=== PATIENT | female | born 1965 | race Caucasian/White ===

== ENCOUNTER → 2018-09-27 | Outpatient (CLI) | payer OTHER ==
[~2018-09-27] MED LIST: FLU60VIA41 IM; FRO2.5PT PO; NAPR-1043 PO; OMEG-11 PO; ONDA4TAB97 PO; SERT-181 PO; SERT25TA90 PO
--- NOTE | 2018-09-27 17:17 | RADIOLOGY IMAGING REPORT ---
FACILITY: [facility] [place] PATIENT NAME: KT NEWMAN : [id number] MR: [id number] V: [id number] EXAM DATE: ORDERING PHYSICIAN: BREANN CARRILLO TECHNOLOGIST: Humera Singh PROCEDURE:BILATERAL DIGITAL SCREENING MAMMOGRAM WITH CAD ASSISTED INTERPRETATION & 3D TOMOSYNTHESIS COMPARISON:Prior mammograms 05/20/12. INDICATIONS:screening FINDINGS: There are scattered areas of fibroglandular density throughout the breasts. In the upper outer quadrant of the Left breast in the middle 1/3 there is now a spiculated mass for which Spot compression view and Left breast Ultrasound is recommended. The remainder of the parenchymal pattern has remained stable. DIAGNOSTIC CATEGORY 0--INCOMPLETE: NEED ADDITIONAL IMAGING EVALUATION. RECOMMENDATIONS: ADDITIONAL MAMMOGRAPHIC VIEWS REQUIRED: LEFT BREAST. ULTRASOUND: LEFT BREAST. IMPRESSION: BIRADS 0: Incomplete. Additional views of the Left breast and Left breast Ultrasound recommended as described. Dictated by: Osiris Bear M.D. on 09/27/2018 at 14:40 Transcribed by: TRELL on 09/27/2018 at 14:59 Approved by: Osiris Bear M.D. on 09/27/2018 at 17:16 [facility]
== END ==
LOC: MAMO 01:07
PROVIDERS: ATTEND Family Medicine
DX: R92.2 Inconclusive mammogram (principal); Z80.3 Family history of malignant neoplasm of breast
CPT/HCPCS: 77063; 77067

== ENCOUNTER → 2018-10-11 | Outpatient (CLI) | payer OTHER ==
--- NOTE | 2018-10-12 14:20 | RADIOLOGY IMAGING REPORT ---
FACILITY: [facility] [place] PATIENT NAME: KT NEWMAN : [id number] MR: [id number] V: [id number] EXAM DATE: [id number] ORDERING PHYSICIAN: BREANN CARRILLO TECHNOLOGIST: Darcie Banks PROCEDURE:LEFT DIGITAL DIAGNOSTIC MAMMOGRAM WITH CAD ASSISTED INTERPRETATION & 3D TOMOSYNTHESIS COMPARISON:Prior mammograms 09/27/18, 05/20/12. INDICATIONS:further evaluation FINDINGS: The patient returns for Spot compression views in Left CC & MLO projections with 3D breast Tomosynthesis. The additional images do confirm a spiculated mass in the upper outer quadrant of the Left breast in the middle 1/3 which was not present on the prior study. Today's Left breast Ultrasound did demonstrate a spiculated solid mass in the 1 o'clock position of the Left breast 6cm from the nipple. This finding is extremely concerning for neoplasm. An Ultrasound guided core biopsy is recommended. DIAGNOSTIC CATEGORY 5--HIGHLY SUGGESTIVE OF MALIGNANCY. RECOMMENDATIONS: ULTRASOUND-GUIDED CORE BIOPSY: LEFT BREAST. IMPRESSION: BIRADS 5: Highly suggestive of malignancy. Ultrasound guided core biopsy of the spiculated solid mass 1 o'clock position of the Left breast 6cm from the nipple recommended. These findings were discussed with the patient at the time of the examination. Dictated by: Osiris Bear M.D. on 10/11/2018 at 16:38 Transcribed by: TRELL on 10/12/2018 at 10:16 Approved by: Osiris Bear M.D. on 10/12/2018 at 14:19 [facility]
--- NOTE | 2018-10-12 15:03 | RADIOLOGY IMAGING REPORT ---
FACILITY: [facility] [place] PATIENT NAME: KT NEWMAN : [id number] MR: [id number] V: [id number] EXAM DATE: [id number] ORDERING PHYSICIAN: BREANN CARRILLO TECHNOLOGIST: Sonny Villalta RDMS, [facility] PROCEDURE:US LEFT BREAST COMPLETE COMPARISON:Today's diagnostic Left mammogram. INDICATIONS:Abnormal mammogram FINDINGS: In the 1 o'clock position of the Left breast 6cm from the nipple there is a 1 x 0.8 x 0.9cm irregular spiculated mass with acoustic shadowing. There is peripheral hyper vascularity. Utilizing sheer wave elastography this measurement of 276kPa is extremely concerning for a neoplasm. Incidentally noted is a fatty replaced lymph node in the Left axilla with normal morphology. DIAGNOSTIC CATEGORY 5--HIGHLY SUGGESTIVE OF MALIGNANCY. RECOMMENDATIONS: ULTRASOUND-GUIDED CORE BIOPSY: LEFT BREAST. IMPRESSION: BIRADS 5: Highly suggestive of malignancy. Ultrasound guided core biopsy of the spiculated mass in the 1 o'clock position of the Left breast 6cm from the nipple recommended. Dictated by: Osiris Bear M.D. on 10/12/2018 at 10:57 Transcribed by: TRELL on 10/12/2018 at 14:57 Approved by: Osiris Bear M.D. on 10/12/2018 at 15:03 [facility]
== END ==
LOC: MAMO 01:28
PROVIDERS: ATTEND Family Medicine
DX: N63.21 Unspecified lump in the left breast, upper outer quadrant (principal)
CPT/HCPCS: 77061; 77065

== ENCOUNTER → 2018-10-19 | Outpatient (CLI) | payer OTHER ==
[~2018-10-19] MED LIST changes: +LIDOCAINE MPF 1% 5 ML VIAL ONE
[2018-10-19 11:26] LABS: INR 0.97
--- NOTE | 2018-10-21 14:13 | RADIOLOGY IMAGING REPORT ---
[place] [facility] [place] KT NEWMAN : [id number] MR: [id number] V: [id number] EXAM DATE: ORDERING PHYSICIAN: TITI EMANUEL TECHNOLOGIST: Sonny Villalta RDMS, [facility] PROCEDURE: BIOPSY LEFT BREAST COMPARISON: Left breast Ultrasound of 10/11/18 & Left mammogram of 10/11/18 & bilateral mammogram of 09/27/18 INDICATIONS: Spiculated mass in the 1 o'clock position of the Left breast FINDINGS: Informed consent was obtained. The patient's Left breast was prepped & draped in the usual sterile fashion. Local anesthesia was accomplished with 1% Lidocaine. Under direct & continuous sonographic guidance four 14 Gauge core biopsies were obtained through the spiculated mass in the 1 o'clock position of the Left breast. The samples were placed in formalin, shown to the patient & sent to the Laboratory for evaluation. A biopsy clip was placed in the biopsy site. The procedure was accomplished without apparent complication. The post biopsy mammogram of the Left breast was performed for clip placement demonstrating the biopsy clip to be located within the spiculated mass in the upper outer quadrant of the Left breast. IMPRESSION: Successful Ultrasound guided Left breast biopsy as detailed above. Dictated by: Osiris Bear M.D. on 10/19/2018 at 15:52 Transcribed by: YUE on 10/21/2018 at 13:23 Approved by: Osiris Bear M.D. on 10/21/2018 at 14:11 [facility]
== END ==
LOC: US 00:58
PROVIDERS: ATTEND Surgery
DX: N63.20 Unspecified lump in the left breast, unspecified quadrant (principal)
CPT/HCPCS: 19083; 36415; 85610; 88305; 88344; J2001

== ENCOUNTER 2018-11-03 01:04 | Day surgery (SDC) | payer OTHER ==
[~2018-11-03] VITALS: Ht 160 cm; Wt 69.9 kg
[~2018-11-03 01:04] MED LIST changes: -LIDOCAINE MPF 1% 5 ML VIAL ONE
[2018-11-03 09:33] VITALS: BP 120/82
[2018-11-03] MEDS ORDERED: LIDOCAINE/PRILOCAINE 5 GM TUBE TP ONE (09:45)
[2018-11-03] MEDS ORDERED: ONDANSETRON 4 MG/2 ML VIAL ONE (10:32)
[2018-11-03] MEDS ORDERED: fentaNYL CITR 100 MCG/2 ML AMP ONE ×3 (10:32→14:17)
[2018-11-03] MEDS ORDERED: PROPOFOL EMUL(*) 10MG/ML 20 ML 20 ML ONE ×3 (10:32→13:22)
[2018-11-03] MEDS ORDERED: DEXAMETHASONE SOD PHOS 10MG/ML ONE (10:32)
[2018-11-03] MEDS ORDERED: LIDOCAINE MPF 1% 5 ML VIAL ONE (10:32)
[2018-11-03] MEDS ORDERED: PROPOFOL EMUL(*) 10MG/ML 20 ML 60 ML ONE (10:35)
[2018-11-03] MEDS ORDERED: HALOPERIDOL LACT 5 MG/ML VIAL IM ONE (10:46)
[2018-11-03] MEDS ORDERED: NORMOSOL R SOLN(*) 1000 ML BAG 1,000 ML IV PRN (11:15)
[2018-11-03] MEDS ORDERED: FAMOTIDINE 20 MG TAB PO ONE (11:15)
[2018-11-03] MEDS ORDERED: ceFAZolin(*) 2GM/D5W 50ML 50 ML IVPB ONE (11:15)
[2018-11-03] MEDS ORDERED: LIDOCAINE/SOD BICARB 8.4% SYR ID ONE (11:15)
[2018-11-03] MEDS ORDERED: MIDAZOLAM 2 MG/2 ML VIAL IVP PRN (11:15)
[2018-11-03] MEDS ORDERED: KETAMINE HCL 200 MG/20 ML MDV ONE (11:37)
[2018-11-03] MEDS ORDERED: ROPIVACAINE 0.5% 20 ML VIAL ONE (11:49)
[2018-11-03] MEDS ORDERED: ISOSULFAN BLUE 1% SLN 50MG/5ML ONE (11:49)
[2018-11-03] MEDS ORDERED: TRAM-420 PO (14:09)
[2018-11-03] MEDS ORDERED: DOCU-416 PO (14:09)
--- NOTE | 2018-11-03 14:11 | Short(Outpt) Discharge Summary ---
Discharge Summary Reason for Hosp/Final Diag: (1) Breast cancer, left breast Status: Chronic Hospital Course & Plan: Left breast cancer excised and left axillary sentinal lymph node removed all without problems. Departure Discharge to: Home, Self Care Discharge Instructions Home Meds Active Scripts Docusate Sodium (COLACE) 100 Mg Capsule, 1 CAP PO BID, #30 CAP 0 Refills TAKE WITH A FULL GLASS OF WATER Prov:TITI EMANUEL MD 11/03/18 Tramadol Hcl (TRAMADOL HCL) 50 Mg Tablet, 1 TAB PO Q4H PRN for PAIN, #20 TAB 0 Refills Prov:TITI EMANUEL MD 11/03/18 Sertraline Hcl (SERTRALINE HCL) 25 Mg Tablet, 1 TAB PO QDAY, #90 TAB 1 Refill Prov:AMANDA VU MD 07/06/18 Reported Medications [place]-3 Fatty Acids/Fish Oil (FISH OIL 1,000 MG CAPSULE) 1 Each Capsule, 2 CAP PO QDAY, CAPSULE 05/05/17 Naproxen Sodium (ALEVE) 220 Mg Tablet, 2 TAB PO PRN PRN for migraine take with Frova 05/08/15 Follow up Referrals: General Surgery - 11/11/18 @ Surgery, General with TITI EMANUEL MD You have a follow up appointment scheduled with Dr. Emanuel on 11/11/18, at 11:30am. Diet: Regular Activity: As Tolerated Special Instructions: You may remove the white surgical dressings on 11/05/18, then you can shower. After showering, leave the incisions open to air but leave the steristrips in place until they fall off on their own. Do not immerse the incisions for 2 weeks. Problem Qualifiers (1) Breast cancer, left breast: Breast location: upper outer quadrant of breast Estrogen receptor status: positive Patient sex: female Qualified Codes: C50.412 - Malignant neoplasm of upper-outer quadrant of left female breast; Z17.0 - Estrogen receptor positive status [ER+] TITI EMANUEL MD November 03, 2018 14:11
--- NOTE | 2018-11-03 14:19 | Post Operative Progress Note ---
Post Operative Progress Note Date: November 03, 2018 Time: 14:11 Surgeon: Arlene Dictation number: [id number] Anesthesia: LMA by Dr. Alston Pre-Op Diagnosis: Left breast cancer Post-Op Diagnosis: YENIFER Findings: SLN negative for cancer on frozen section Margins grossly negative on mammogram of speciman Procedure(s): Left breast wire-guided cancer wide excision Left axillary SLN excision Specimen Removed:(May be N/A): 1) Left axillary sentinal lymph node 2) Left axillary lymph nodes 3) Left breast cancer Complications: None Fluids: See anesthesia record Estimated Blood Loss: Minimal Date OP Note Dictated: November 03, 2018 Time OP Note Dictated: 14:13 TITI EMANUEL MD November 03, 2018 14:19
--- NOTE | 2018-11-03 14:50 | OPERATIVE REPORT 1 ---
EVENT DATE: November 03, 2018 SURGEON: Robi Jacobs MD ANESTHESIOLOGIST: Tommy Alston MD ANESTHESIA: LMA. PREOPERATIVE DIAGNOSIS Left breast cancer. POSTOPERATIVE DIAGNOSIS Left breast cancer. PROCEDURES PERFORMED 1. Left breast cancer wide excision, wire-guided. 2. Left axillary sentinel lymph node excision. COMPLICATIONS None. CONDITION Stable. ESTIMATED BLOOD LOSS Minimal. FINDINGS Patient was negative for cancer on frozen section and the margins appeared grossly negative on mammogram of the specimen. SPECIMENS 1. Left axillary sentinel lymph node. 2. Left axillary lymph nodes, nonsentinel. 3. Left breast cancer. INDICATIONS This is a 53-year old female who was referred to me with a new breast lump and suspicious lesion seen on mammogram. She underwent a stereotactic biopsy which revealed a breast cancer. After discussing our options with mastectomy versus breast conservation therapy, she elected to proceed with breast conservation therapy. DESCRIPTION OF PROCEDURE Patient was brought into the operating room and placed supine on the operating table. LMA anesthesia was administered and the left breast and arm were prepped and draped in a sterile fashion. Time-out was completed. I used a gamma probe to identify the sentinel lymph node. I reviewed the images of both the wire placement and sentinel lymph node imaging prior to scrubbing in. I marked the skin in the left axilla over the sentinel lymph node and then anesthetized with 0.5% ropivacaine plain and then made an incision and dissected through the dermis and subcutaneous fat through the clavipectoral fascia into the axillary contents. I used the gamma probe throughout to continue to identify the lymph node as I dissected deeper and deeper. I also injected the periareolar dermis with 5 mL of Lymphazurin and so I could also see the lymphatic channels lighting up in the lymph node. Once I was in, the axillary contents were easily identifiable by the blue discoloration as well as the gamma output. I dissected around this and there was some adherent lymph nodes so I dissected this all in block and then once I got it out of the axilla I used the gamma probe to determine which was the sentinel node, although it was fairly obvious due to the blue discoloration. I then this from the rest of the two or three lymph nodes that were attached to it and then used the gamma probe and obtained a count, which was over 2,800. I then sent this fresh for frozen section analysis and then sent the other lymph nodes just a left axillary lymph nodes and they were sent permanent. I then inspected the axilla and it was hemostatic so I packed the axillary wound with moist Raytec. I then marked the skin on the left breast over where the lump is located and then anesthetized with 0.5% ropivacaine plain and made a curvilinear incision parallel with the Shaka lines in the skin. I dissected through the dermis and subcutaneous fat into the breast tissue and then skewed my dissection lateral towards the wire and pulled the wire into the wound and then dissected around the wire all the way past the tip of the wire and then pulled the specimen out of the wound. The wire was right in the middle of the specimen. I could palpate the mass within the lump of tissue. I then placed it on a grid and walked it over to radiology and took a mammogram two-view image of it and reviewed this with the radiologist. The mammographic lesion was within the tissue that I removed. Palpating the specimen made me feel that the superior side was a little close to the surgical margin and after walking the lesion over to pathology and dropping it off there I went back to the operating room and removed more of the superior margin and sent this permanent to pathology. I did wilbert the primary specimen with a short silk stitch on the superior margin and a long silk stitch on the lateral margin. I then irrigated and dried this wound and made sure it was hemostatic and closed the pocket with running 3-0 Vicryl sutures and then closed the skin with interrupted 3-0 Vicryl deep dermal sutures and 4-0 Monocryl subcuticular sutures. The wound in the axilla, after removing the Raytec, was closed with running 3-0 Vicryl deep sutures to close the pocket and the skin was closed with interrupted 3-0 Vicryl deep dermal sutures and 4-0 Monocryl running subcuticular sutures. Skin was cleaned and dried and Steri-Strips were applied on both incisions followed by sterile surgical dressings. The patient was awakened and LMA removed. She was transported to the recovery room in stable condition, having tolerated the procedure without any apparent problems. JOHN
[2018-11-03 15:00] VITALS: BP 103/67
[2018-11-03 15:01] VITALS: BP 108/62
--- NOTE | 2018-11-03 17:05 | RADIOLOGY IMAGING REPORT ---
FACILITY: [facility] PATIENT NAME: Jazzmine Granda : 1965 MR: [id number] V: [id number] EXAM DATE: ORDERING PHYSICIAN: TITI EMANUEL TECHNOLOGIST: Location: [facility] Patient: Jazzmine Granda : 1965 Visit/Account:[id number] Date of Sevice: 11/03/2018 Exam type: NM SENTINEL NODE INJECTION ONLY History: Breast cancer Comparison: None. Findings: The patient received 513 uCi of technetium 99 M lymphoseek and four left periareolar subcutaneous inj ections. Multiple gamma camera images were obtained demonstrating several left axillary sentinel lym ph nodes. There is a possible small intramammary lymph node IMPRESSION: 1. As above Report Dictated By: Osiris Bear MD at 11/03/2018 4:58 PM Report E-Signed By: Osiris Bear MD at 11/03/2018 5:00 PM WSN:[id number]
--- NOTE | 2018-11-04 14:07 | RADIOLOGY IMAGING REPORT ---
FACILITY: [facility] PATIENT NAME: KT NEWMAN : [id number] MR: [id number] V: [id number] EXAM DATE: [id number] ORDERING PHYSICIAN: TITI EMANUEL TECHNOLOGIST: Sonny Villalta RDMS, RDCS PROCEDURE: ULTRASOUND GUIDED LEFT BREAST LOCALIZATION COMPARISON: None. INDICATIONS: Left breast cancer FINDINGS: Informed consent was obtained. The patient's Left breast was prepped & draped in the usual sterile fashion. Local anesthesia was accomplished with 1% Lidocaine. Under direct & continuous sonographic guidance a needle hookwire was advanced percutaneously through the irregular hypoechoic mass in the 1 o'clock position Left breast. The needle was removed following deployment of the hookwire. The patient was sent to the Operating Room for surgical excision. The procedure was accomplished without apparent complication. CONCLUSION: Successful sonographically guided Left breast needle localization. Dictated by: Osiris Bear M.D. on 11/03/2018 at 16:17 Transcribed by: YUE on 11/04/2018 at 13:43 Approved by: Osiris Bear M.D. on 11/04/2018 at 14:05 [facility]
--- NOTE | 2018-11-04 15:33 | RADIOLOGY IMAGING REPORT ---
FAC[place] [facility] [place] PATIENT NAME: KT NEWMAN : [id number] MR: [id number] V: [id number] EXAM DATE: ORDERING PHYSICIAN: TITI EMANUEL TECHNOLOGIST: Humera Singh PROCEDURE: BREAST SPECIMEN COMPARISON: None. INDICATIONS: Left breast mass FINDINGS: The surgical specimen radiograph demonstrates the spiculated mass to be within the surgical specimen. Also within the specimen is the previously placed Ultrasound guided biopsy clip & the hookwire used for the localization. CONCLUSION: As above. Dictated by: Osiris Bear M.D. on 11/03/2018 at 16:18 Transcribed by: YUE on 11/04/2018 at 14:09 Approved by: Osiris Bear M.D. on 11/04/2018 at 15:32 [facility]
[2018-11-10] MEDS ORDERED: LIDOCAINE/PRILOCAINE 5 GM TUBE TP ONE (09:30)
== END 2018-11-03 14:45 | disposition home or self-care (01) ==
LOC: OR 01:04
PROVIDERS: ATTEND Surgery
DX: C50.912 Malignant neoplasm of unspecified site of left female breast (principal)
CPT/HCPCS: 19125; 19285; 38500; 78195; 88305; 88342; 88344; A9520; J1100; J1630; J2001; J2250; J2405; J2704; J2795; J3010; J3490; Q9968; J0690